=== PATIENT | female | born 1945 | race Caucasian/White ===

== ENCOUNTER 2016-10-31 08:00 | Inpatient (IN) | payer OTHER ==
[~2016-10-31] VITALS: Ht 173 cm; Wt 87.0 kg
[2016-11-01 04:20] LABS: HCT 27.4 % (37.0-47.0); HGB 8.8 g/dl (12.5-16.0); MCHC 32.1 g/dL (32.0-36.0); MCV 96.5 fL (78.0-100.0); MPV 9.7 fL (6.0-9.5); RBC 2.84 M/uL (4.20-5.40); RDW 13.9 % (11.5-14.0); WBC 7.4 K/uL (4.0-10.5)
[2016-11-01 04:35] LABS: CREATININE 0.9 mg/dL (0.5-1.0); POTASSIUM 3.8 mmol/L (3.5-5.1)
[2016-11-02] MEDS ORDERED: SULINDAC200 MG PO (13:44)
[2016-11-02] MEDS ORDERED: XARELTO10 MG PO (13:50)
[2016-11-02] MEDS ORDERED: NIFEREX150 MG PO (13:50)
== END 2016-11-01 12:45 | disposition home health service (06) | DRG 470 ==
LOC: FMS 08:00
PROVIDERS: ADMIT Legal Medicine
PROC: 0SRB04A Replacement of Left Hip Joint with Ceramic on Polyethylene Synthetic Substitute, Uncemented, Open Approach (ICD-10-PCS; principal; 2016-10-31 08:30)
DX: M16.12 Unilateral primary osteoarthritis, left hip (principal); Z96.641 Presence of right artificial hip joint; D62 Acute posthemorrhagic anemia; Z96.652 Presence of left artificial knee joint; E78.5 Hyperlipidemia, unspecified; F41.9 Anxiety disorder, unspecified; I49.9 Cardiac arrhythmia, unspecified; R35.0 Frequency of micturition; Z79.899 Other long term (current) drug therapy
CPT/HCPCS: 36415; 73501; 76000; 80048; 86850; 86900; 86901; 88304; 88311; 94010; 94762; 97116; 97162; 97166; 97530; 97530-GP; 97535; C1713; C1776; J0131; J0697; J1100; J1170; J1885; J2270; J2765; J2795; J3010

== ENCOUNTER 2016-11-25 15:08 | Day surgery (SDCO) | payer OTHER ==
[~2016-11-25] VITALS: Ht 172.7 cm; Wt 86.2 kg
[~2016-11-25 15:08] MED LIST: NIFEREX150 MG PO; SULINDAC200 MG PO; XARELTO10 MG PO
[2016-11-26 05:15] LABS: HCT 35.9 % (37.0-47.0); HGB 11.3 g/dl (12.5-16.0); MCH 30.5 pg (25.0-31.0); MCHC 31.5 g/dL (32.0-36.0); MCV 96.8 fL (78.0-100.0); MPV 9.2 fL (6.0-9.5); RBC 3.71 M/uL (4.20-5.40); RDW 15.7 % (11.5-14.0); WBC 5.5 K/uL (4.0-10.5)
[2016-11-26 05:39] LABS: CREATININE 0.8 mg/dL (0.5-1.0); MAGNESIUM 2.03 mg/dL (1.40-2.10); POTASSIUM 4.9 mmol/L (3.5-5.1)
[2016-11-26] MEDS ORDERED: BACTRIM DS TAB1 EACH PO (11:29)
[2016-11-26] MEDS ORDERED: PROSTAT PO (11:29)
[2016-11-26] MEDS ORDERED: XANAX0.5 MG PO ×2 (11:29→13:49)
[2016-11-26] MEDS ORDERED: NORCO 5-325 TA1 EACH PO (11:30)
[2016-11-26] MEDS ORDERED: VIBRAMYCIN100 MG PO (11:30)
[2016-11-26] MEDS ORDERED: ACETAMINOPHEN325 MG PO (11:30)
[2016-11-26] MEDS ORDERED: MIRALAX17 GM PO (11:31)
[2016-11-26] MEDS ORDERED: FLEET ENEMA133 ML PR (11:32)
[2016-11-26] MEDS ORDERED: LOVASTATIN10 MG PO (13:46)
== END 2016-11-26 15:59 ==
LOC: FAS 15:08 → EDSTATUS 16:00 → FMS 17:50
PROVIDERS: ADMIT Legal Medicine
DX: T81.31XA Disruption of external operation (surgical) wound, not elsewhere classified, initial encounter (principal); Z96.643 Presence of artificial hip joint, bilateral; S72.401P Unspecified fracture of lower end of right femur, subsequent encounter for closed fracture with malunion; W19.XXXD Unspecified fall, subsequent encounter; I49.9 Cardiac arrhythmia, unspecified; E78.5 Hyperlipidemia, unspecified; I51.7 Cardiomegaly; M19.90 Unspecified osteoarthritis, unspecified site; Z96.652 Presence of left artificial knee joint; F41.1 Generalized anxiety disorder; Z79.899 Other long term (current) drug therapy; N32.81 Overactive bladder; Z79.01 Long term (current) use of anticoagulants; Z90.49 Acquired absence of other specified parts of digestive tract; Z82.49 Family history of ischemic heart disease and other diseases of the circulatory system
CPT/HCPCS: 36415; 73552; 80048; 83735; 87070; 87075; 87077; 87186; 87205; 87640; 87641; 87900; 93005; G0378; J0690; J1170; J2270; J2405; J2704; J2795; J3260